=== PATIENT | female | born 1950 | race Caucasian/White ===

== ENCOUNTER 2021-07-02 12:51 | Observation (INO) | payer BC, MEDICARE, OTHER ==
[2021-07-02 13:03] LABS: #Basophils 0.1 thou/uL (0.0-0.2); #Eosinphils 0.1 thou/uL (0.0-0.7); #Lymphocytes 1.4 thou/uL (1.20-3.40); #Monocytes 0.6 thou/uL (0.11-0.59); #Neutrophils 2.9 thou/uL (1.40-6.50); %Basophils 1.1 % (0.0-1.0); %Eosinophils 2.8 % (0.0-10.0); %Lymphocytes 26.8 % (21.0-51.0); %Monocytes 12.5 % (0.0-10.0); %Neutrophils 56.8 % (42.0-75.0); Hemoglobin 13.4 g/dL (12.0-16.0); Mean Corpuscular HGB CONC 33.1 g/dL (32.0-36.0); Mean Corpuscular Hemoglobin 32.2 pg (27.0-31.0); Mean Corpuscular Volume 97.4 fL (78.0-98.0); Platelet Count 171 thou/uL (130-400); RBC Distribution Width 12.7 % (11.5-14.5); Red Blood Cell (RBC) Count 4.15 mill/uL (4.20-5.40); White Blood Cell (WBC) Count 5.1 thou/uL (4.8-10.8)
[2021-07-02] MEDS ORDERED: Aspirin Chewable 81 MG TAB ONE (13:03)
[2021-07-02 13:14] LABS: PTT 26.7 sec (22.9-36.1); Prothrombin Time 12.9 sec (12.0-14.7)
[2021-07-02 13:19] LABS: ALT (SGPT) 23 U/L (8-55); AST (SGOT) 25 U/L (5-34); Alkaline Phosphatase 51 U/L (40-110); Anion Gap 12 mmol/L (10-20); BUN (Urea Nitrogen) 11 mg/dL (9.8-20.1); Bilirubin, Total 0.7 mg/dL (0.2-1.2); CK (CPK) 73 U/L (29-168); Calc. Creatinine Clearance 0 mL/min (70-130); Calcium 9.1 mg/dL (7.8-10.44); Carbon Dioxide 25 mmol/L (23-31); Chloride 104 mmol/L (98-107); Globulin 2.5 g/dL (2.4-3.5); Glucose 109 mg/dL (83-110); Potassium 3.7 mmol/L (3.5-5.1); Protein, Total 6.5 g/dL (5.8-8.1); Sodium 137 mmol/L (136-145)
[2021-07-02] MEDS ORDERED: Ondansetron PF 4 MG/2 ML Vial IVP PRN (15:26)
[2021-07-02] MEDS ORDERED: hydrALAZINE 20 MG/ML VIAL SLOW IVP PRN (15:26)
[2021-07-02] MEDS ORDERED: Acetaminophen 325 MG TAB PO PRN (15:26)
[2021-07-02] MEDS ORDERED: Calcium Carbonate 500 MG ChewTAB PO PRN (15:26)
[2021-07-02] MEDS ORDERED: Ondansetron ODT 4 MG TAB PO PRN (15:26)
[2021-07-02 17:32] LABS: Magnesium 2.3 mg/dL (1.6-2.6); Phosphorus 3.7 mg/dL (2.3-4.7)
[2021-07-02 17:35] LABS: Hemoglobin A1c 6.2 % (4.0-6.0)
[2021-07-02 17:47] LABS: SARS-CoV-2 NAA Rapid Test Not Detected (NotDetected)
[2021-07-02 20:11] VITALS: BMI 27.7
[2021-07-03 05:42] LABS: Band 3 % (5-11); Hemoglobin 12.4 g/dL (12.0-16.0); Lymphocytes 21 % (21-51); MDiff Complete? YES; Mean Corpuscular HGB CONC 32.5 g/dL (32.0-36.0); Mean Corpuscular Hemoglobin 31.1 pg (27.0-31.0); Mean Corpuscular Volume 95.8 fL (78.0-98.0); Mean Platelet Volume 7.1 fL (7.4-10.4); Monocytes 12 % (0-10); Neutrophil 64 % (42-75); Platelet Count 170 thou/uL (130-400); Platelet Morphology Comment Appears Adequate; RBC Distribution Width 12.6 % (11.5-14.5); RBC Morphology Normal; Red Blood Cell (RBC) Count 3.99 mill/uL (4.20-5.40); White Blood Cell (WBC) Count 5.7 thou/uL (4.8-10.8)
[2021-07-03 05:59] LABS: ALT (SGPT) 20 U/L (8-55); AST (SGOT) 21 U/L (5-34); Albumin 3.6 g/dL (3.4-4.8); Alkaline Phosphatase 45 U/L (40-110); Anion Gap 11 mmol/L (10-20); BUN (Urea Nitrogen) 9 mg/dL (9.8-20.1); Bilirubin, Total 1.2 mg/dL (0.2-1.2); Calc. Creatinine Clearance 107 mL/min (70-130); Calcium 8.4 mg/dL (7.8-10.44); Carbon Dioxide 24 mmol/L (23-31); Cardiac Risk 2.9 (Less than 4.5); Chloride 109 mmol/L (98-107); Cholesterol 180 mg/dl (< 200 Desired); Globulin 2.3 g/dL (2.4-3.5); Glucose 92 mg/dL (83-110); HDL Cholesterol 63 mg/dL (>60 Neg Risk); LDL Cholesterol, Calculated 108 mg/dL; Potassium 3.5 mmol/L (3.5-5.1); Protein, Total 5.9 g/dL (5.8-8.1); Sodium 140 mmol/L (136-145); Triglycerides 47 mg/dL (Less than 150)
[2021-07-03] MEDS ORDERED: Aspirin 81 mg Enteric Coated Tablet PO SCH (09:00)
[2021-07-03] MEDS ORDERED: Enoxaparin Sodium 40 MG/0.4 ML SYRINGE SC SCH (09:00)
[2021-07-03] MEDS ORDERED: Clopidogrel Bisulfate 300 MG TAB PO SCH (13:15)
[2021-07-03] MEDS ORDERED: Atorvastatin Calcium 20 MG TAB PO SCH (13:30)
[2021-07-03 16:00] VITALS: BP 114/79; TEMP 98.4
== END 2021-07-03 17:30 | disposition home or self-care (01) ==
LOC: ERS 12:51 → INTOOBSV 13:59 → ERHOLD 13:59 → NEURO 17:24
PROVIDERS: ADMIT Emergency Medicine; ATTEND Emergency Medicine
DX: G45.9 Transient cerebral ischemic attack, unspecified (principal); I10 Essential (primary) hypertension; E78.5 Hyperlipidemia, unspecified; Z20.822 Contact with and (suspected) exposure to COVID-19; Z79.02 Long term (current) use of antithrombotics/antiplatelets; Z79.82 Long term (current) use of aspirin; Z79.899 Other long term (current) drug therapy
CPT/HCPCS: 70450; 70551; 71045; 80053; 80061; 82550; 83036; 83735; 84100; 84484; 85007; 85027; 85610; 85730; 93005; 93306; 93880; 94760; 96372; 99285; G0378 ×3; U0002; 36415; 84443; 85025; J1650

== ENCOUNTER 2021-09-10 06:10 | Day surgery (SDC) | payer MEDICARE ==
[2021-09-06 11:07] VITALS: BMI 27.3
[2021-09-10] MEDS ORDERED: PROPOFOL 0 ML ONE (08:18)
== END 2021-09-10 09:41 | disposition home or self-care (01) ==
LOC: SDC 06:10
PROVIDERS: ATTEND Internal Medicine Cardiovascular Disease
PROC: 5A2204Z Restoration of Cardiac Rhythm, Single (ICD-10-PCS; principal; 2021-09-10)
DX: I48.0 Paroxysmal atrial fibrillation (principal); I10 Essential (primary) hypertension; E78.5 Hyperlipidemia, unspecified; E11.9 Type 2 diabetes mellitus without complications; Z86.73 Personal history of transient ischemic attack (TIA), and cerebral infarction without residual deficits; Z79.01 Long term (current) use of anticoagulants; Z79.899 Other long term (current) drug therapy
CPT/HCPCS: 92960; 93005; 93010; J2704